=== PATIENT | female | born 1950 | race Caucasian/White ===

== ENCOUNTER 2018-03-28 16:03 | Observation (INO) | payer MEDICARE, OTHER ==
[2018-03-28] MEDS ORDERED: DUONEB 0.5-3 MG/3 ml Neb IH PRN (17:19)
[2018-03-28 18:09] LABS: A-aADO2 32; ABG HEMOGLOBIN 16.1; ABG POTASSIUM 3.4 (3.5-5.1); ARTERIAL BLD GAS O2 SATURATION 97.1 % (95-100); ARTERIAL BLOOD GAS BASE EXCESS 0.9 (-2.0-2.0); ARTERIAL BLOOD GAS FIO2 21 %; ARTERIAL BLOOD GAS PCO2 39 mmHg (35-45); ARTERIAL BLOOD GAS PO2 69 mmHg (75-100); ARTERIAL BLOOD GAS pH 7.42 (7.35-7.45); CARBOXYHEMOGLOBIN 5.7 % THgb (0.0-6.9); HCO3- 25.3 (22-28); HGB O2 SAT 90.4 g/dF (94-100); Methhemoglobin 1.2 % (1.4-1.5); paO2 pAO1 0.68
[2018-03-28 18:10] LABS: ABG SITE RIGHT RADIAL; ALLEN TEST OK? YES
[2018-03-28] MEDS: Sodium Chloride 0.9% 1000 ML 1,000 ML IV SCH (18:20)
[2018-03-28] MEDS: ENOXAPARIN SODIUM SQ SCH (18:20)
[2018-03-28] MEDS: solu-MEDROL 125 MG IV SCH (18:21)
[2018-03-28] MEDS: ROCEPHIN 1 Gm-D5w 50 ml Bag** 1 G/50 ML IVPB IV SCH (18:21)
[2018-03-28 18:27] LABS: Hematocrit 47.5 % (35-47); Mean Cell Volume 91.2 fl (78-100); Mean Corpuscular Hemoglobin 30.7 pg (26-32); Mean Corpuscular Hgb Concent. 33.7 g/dl (32-36); Mean Platelet Volume 10.8 fl (6-9.5); Platelet Count 284 K/mm3 (150-450); Red Blood Count 5.21 M/mm3 (4.1-5.4); Red Cell Distribution Width 13.6 % (11.5-14.0); White Blood Count 12.2 K/mm3 (4.0-10.5)
[2018-03-28 18:45] LABS: ALBUMIN 4.3 g/dL (3.5-5.0); ALKALINE PHOSPHATASE 95 U/L (38-126); ANION GAP 14.7 MEQ/L (5-15); BLOOD UREA NITROGEN 21 mg/dL (7-17); CHLORIDE 105 mmol/L (98-107); Calcium 9.4 mg/dL (8.4-10.2); Carbon Dioxide 24 mmol/L (22-30); Creatinine 1 0.88 mg/dL (0.52-1.04); Glucose 152 mg/dL (74-106); Potassium 3.6 mmol/L (3.5-5.1); SGOT/AST 26 U/L (14-36); SGPT/ALT 27 U/L (0-35); SODIUM 141 mmol/L (137-145); Total Protein 7.3 g/dL (6.3-8.2)
[2018-03-28 18:57] LABS: NT PRO BNP 146 pg/mL (0-900)
[2018-03-28 19:00] LABS: TROPONIN < 0.012 ng/mL (0.000-0.034)
[2018-03-28] MEDS: DUONEB 0.5-3 MG/3 ml Neb IH SCH (19:25)
[2018-03-28] MEDS ORDERED: ASTELIN NASAL INTRANASAL PRN (20:00)
[2018-03-28 20:02] LABS: INFLUENZA A NEGATIVE (NEGATIVE); INFLUENZA B NEGATIVE (NEGATIVE); RESPIRATORY SYNCTIAL VIRUS NEGATIVE (Negative)
[2018-03-28] MEDS ORDERED: Flovent 110 Mcg MDI IH PRN (20:02)
[2018-03-28] MEDS: KLONOPIN PO SCH (21:58)
[2018-03-29] MEDS: solu-MEDROL 125 MG IV SCH ×4 (00:50→22:45)
[2018-03-29] MEDS: Sodium Chloride 0.9% 1000 ML 1,000 ML IV SCH ×2 (04:21→18:06)
[2018-03-29] MEDS: DUONEB 0.5-3 MG/3 ml Neb IH SCH ×4 (06:59→19:22)
--- NOTE | 2018-03-29 08:27 | XRAY ---
Exam: PA and lateral chest films from 03/28/2018. Comparison: Two-view chest x-ray from 10/29/2017. Indication: Bronchitis Findings: Upright PA and lateral chest films are submitted for evaluation. The heart size and contour are normal. I again see moderate tortuosity of the descending thoracic aorta and some atherosclerotic vascular calcification within the aortic knob. The silverio and mediastinal structures appear unremarkable. External respiratory tubing overlies the right lung field and suprasternal notch. There is minimal stable linear scarring/fibrosis at the lateral left lung base adjacent to the cardiac apex. I see no air space infiltrates, vascular congestion, pneumothorax, or pleural fluid. No acute osseous process is seen. There is mild convexity of the mid thoracic spine toward the right representing no change. Impression: 1. No new infiltrates to suggest focal pneumonia or other acute cardiopulmonary disease is seen. 2. Chronic linear scarring/fibrosis at lateral left lung base representing no change from 10/29/2017.
[2018-03-29] MEDS: ROCEPHIN 1 Gm-D5w 50 ml Bag** 1 G/50 ML IVPB IV SCH (09:17)
[2018-03-29] MEDS: ENOXAPARIN SODIUM SQ SCH (09:17)
[2018-03-29] MEDS ORDERED: Flonase NASAL NS PRN (12:55)
[2018-03-29] MEDS: KLONOPIN PO SCH (22:45)
[2018-03-30] MEDS: Sodium Chloride 0.9% 1000 ML 1,000 ML IV SCH (03:58)
[2018-03-30] MEDS: solu-MEDROL 125 MG IV SCH (06:12)
[2018-03-30] MEDS: DUONEB 0.5-3 MG/3 ml Neb IH SCH ×2 (06:46→11:07)
[2018-03-30] MEDS: ROCEPHIN 1 Gm-D5w 50 ml Bag** 1 G/50 ML IVPB IV SCH (08:35)
[2018-03-30] MEDS: ENOXAPARIN SODIUM SQ SCH (08:35)
[2018-03-30 10:20] LABS: Hematocrit 41.7 % (35-47); Hemoglobin 13.8 gm/dl (12.0-16.0); Mean Cell Volume 93.5 fl (78-100); Mean Corpuscular Hemoglobin 30.9 pg (26-32); Mean Corpuscular Hgb Concent. 33.1 g/dl (32-36); Mean Platelet Volume 10.7 fl (6-9.5); Platelet Count 275 K/mm3 (150-450); Red Blood Count 4.46 M/mm3 (4.1-5.4); Red Cell Distribution Width 13.6 % (11.5-14.0); White Blood Count 21.9 K/mm3 (4.0-10.5)
[2018-03-30 10:30] LABS: ANION GAP 11.3 MEQ/L (5-15); BLOOD UREA NITROGEN 17 mg/dL (7-17); CHLORIDE 111 mmol/L (98-107); Calcium 8.9 mg/dL (8.4-10.2); Carbon Dioxide 21 mmol/L (22-30); Creatinine 1 0.63 mg/dL (0.52-1.04); Glucose 198 mg/dL (74-106); Potassium 4.4 mmol/L (3.5-5.1); SODIUM 139 mmol/L (137-145)
--- NOTE | 2018-03-30 11:59 | PCM.HP ---
History of Present Illness - Chief Complaint Chief Complaint: Exac. Asthma, bronchitis History of Present Illness: is a 67 year old female. - Review of Systems Constitutional: No Fever, No Chills Eyes: No Symptoms Ears, Nose, & Throat: No Symptoms Respiratory: Cough, Short Of Breath Cardiac: No Chest Pain, No Edema, No Syncope Abdominal/Gastrointestinal: No Abdominal Pain, No Nausea, No Vomiting, No Diarrhea Genitourinary Symptoms: No Dysuria Musculoskeletal: No Back Pain, No Neck Pain Skin: No Rash Neurological: No Dizziness, No Focal Weakness, No Sensory Changes Psychological: No Symptoms Endocrine: No Symptoms Hematologic/Lymphatic: No Symptoms Immunological/Allergic: No Symptoms Medications & Allergies Home Medications: Home Medication List Azelastine HCl 2 puff IH QIDPRN PRN 03/28/18 [History Confirmed 03/28/18] Fluticasone Propionate [Flonase NASAL] 2 spray IH DAILY PRN PRN 03/28/18 [ History Confirmed 03/28/18] clonazePAM [Clonazepam] 2 mg PO HS 03/28/18 [History Confirmed 03/28/18] Allergies/Adverse Reactions: Allergies Allergy/AdvReac Type Severity Reaction Status Date / Time pineapple Allergy Hives Verified 03/28/18 17:40 codeine AdvReac Verified 03/28/18 17:41 - Past Medical History Past Medical History: Yes Neurological History: No Pertinent History ENT History: No Pertinent History Cardiac History: No Pertinent History Respiratory History: Asthma Endocrine Medical History: No Pertinent History Musculoskelatal History: No Pertinent History GI Medical History: No Pertinent History History: No Pertinent History Pyscho-Social History: Anxiety Reproductive Disorders: No Pertinent History - Female History Are you now?: No - Past Surgical History Past Surgical History: Yes Neuro Surgical History: No Pertinent History Cardiac History: No Pertinent History Respiratory Surgery: No Pertinent History GI Surgical History: No Pertinent History Genitourinary Surgical Hx: No Pertinent History Musculskeletal Surgical Hx: No Pertinent History Female Surgical History: Hysterectomy - Social History Smoking Status: Current every day smoker How long have you smoked: 50 yrs Alcohol: None Drug Use: none - Physical Exam Vital Signs: Vital Signs - 24 hr Temp Pulse Resp BP Pulse Ox 03/30/18 11:10 101 H 16 94 L 03/30/18 07:09 98.3 F 112 H 20 160/95 96 03/30/18 06:46 112 H 20 96 03/30/18 04:05 97.6 F 112 H 20 119/70 97 03/29/18 23:48 98.4 F 118 H 20 131/67 97 03/29/18 22:59 102 H 20 96 03/29/18 20:00 98.5 F 105 H 20 124/60 96 03/29/18 19:25 101 H 20 95 03/29/18 16:00 98.2 F 107 H 20 119/64 95 03/29/18 14:59 85 18 93 L 03/29/18 12:00 140/74 Oxygen-Last 24 hours O2 Percentage 2 Liters = 28% O2 Percentage 2 Liters = 28% O2 Percentage 2 Liters = 28% O2 Percentage 2 Liters = 28% O2 Percentage 2 Liters = 28% General Appearance: no apparent distress, alert Neurologic Exam: alert, oriented x 3, cooperative, normal mood/affect, nml cerebellar function, nml station & gait, sensation nml, No motor deficits Eye Exam: PERRL/EOMI, eyes nml inspection Ears, Nose, Throat Exam: normal ENT inspection, TMs normal, pharynx normal, moist mucous membranes Neck Exam: normal inspection, non-tender, supple, full range of motion Respiratory Exam: normal breath sounds, lungs clear, No respiratory distress Cardiovascular Exam: regular rate/rhythm, normal heart sounds, normal peripheral pulses Gastrointestinal/Abdomen Exam: soft, normal bowel sounds, No tenderness, No mass Back Exam: normal inspection, normal range of motion, No CVA tenderness, No vertebral tenderness Extremity Exam: normal inspection, normal range of motion, pelvis stable Skin Exam: normal color, warm, dry, No rash Lymphatic Exam: No adenopathy Results - Labs Lab/Micro Results: Lab Results-Last 24 Hours 03/30/18 03/30/18 Range/Units 10:06 10:06 WBC 21.9 H (4.0-10.5) K/mm3 RBC 4.46 (4.1-5.4) M/mm3 Hgb 13.8 (12.0-16.0) gm/dl Hct 41.7 (35-47) % MCV 93.5 (78-100) fl MCH 30.9 (26-32) pg MCHC 33.1 (32-36) g/dl RDW 13.6 (11.5-14.0) % Plt Count 275 (150-450) K/mm3 MPV 10.7 H (6-9.5) fl Sodium 139 (137-145) mmol/L Potassium 4.4 (3.5-5.1) mmol/L Chloride 111 H (98-107) mmol/L Carbon Dioxide 21 L (22-30) mmol/L Anion Gap 11.3 (5-15) MEQ/L BUN 17 (7-17) mg/dL Creatinine 0.63 (0.52-1.04) mg/dL Estimated GFR > 60.0 ML/MIN Glucose 198 H (74-106) mg/dL Calcium 8.9 (8.4-10.2) mg/dL - Radiology Impressions Radiology Exams & Impressions: Radiology Procedures Category Date Time Status CHEST 2 VIEWS (PA AND LAT) Routine Exams 03/28/18 18:00 Completed Assessment/Plan (1) Bronchitis Current Visit: Yes Status: Acute Onset Date: ~03/28/18 Code(s): J40 - BRONCHITIS, NOT SPECIFIED ACUTE OR CHRONIC (2) COPD (chronic obstructive pulmonary disease) Current Visit: Yes Status: Acute Onset Date: ~03/28/18 (3) Exacerbation of asthma Current Visit: Yes Status: Acute Onset Date: ~03/28/18 Code(s): J45.901 - UNSPECIFIED ASTHMA WITH (ACUTE) EXACERBATION
--- NOTE | 2018-03-30 12:01 | PCM.DS ---
Discharge Summary Date of Admission: 03/28/18 17:02 Admitting Physician: PHOEBE CAMPBELL Primary Care Provider: PHOEBE CAMPBELL Allergies Allergies pineapple Allergy (Verified 03/28/18 17:40) Hives codeine Adverse Reaction (Verified 03/28/18 17:41) behaviors Hospital Summary - Hospital Course Hospital Course: Chief Complaint Diagnosis Exac. Asthma, bronchitis Allergies Allergy/AdvReac Type Severity Reaction Status Date / Time pineapple Allergy Hives Verified 03/28/18 17:40 codeine AdvReac Verified 03/28/18 17:41 Vital Signs (Last 24 hours) Temp Pulse Resp BP Pulse Ox 03/30/18 11:10 101 H 16 94 L 03/30/18 07:09 98.3 F 112 H 20 160/95 96 03/30/18 06:46 112 H 20 96 03/30/18 04:05 97.6 F 112 H 20 119/70 97 03/29/18 23:48 98.4 F 118 H 20 131/67 97 03/29/18 22:59 102 H 20 96 03/29/18 20:00 98.5 F 105 H 20 124/60 96 03/29/18 19:25 101 H 20 95 03/29/18 16:00 98.2 F 107 H 20 119/64 95 03/29/18 14:59 85 18 93 L 03/29/18 12:00 140/74 Home Medications Medication Instructions Recorded Confirmed Last Taken Type Azelastine HCl 2 puff IH QIDPRN PRN 03/28/18 03/28/18 03/28/18 History Fluticasone Propionate [Flonase 2 spray IH DAILY PRN PRN 03/28/18 03/28/18 Unknown History NASAL] clonazePAM [Clonazepam] 2 mg PO HS 03/28/18 03/28/18 03/27/18 History Current Medications Generic Name Dose Route Start Last Admin Trade Name Freq PRN Reason Stop Dose Admin Albuterol/Ipratropium 3 ml 03/28/18 19:00 03/30/18 11:07 Duoneb 0.5-3 Mg/3 Ml Neb IH 04/27/18 18:59 3 ml QIDRT EZRA Administration Albuterol/Ipratropium 3 ml 03/28/18 17:19 03/29/18 22:57 Duoneb 0.5-3 Mg/3 Ml Neb IH 04/27/18 17:18 3 ml PRN PRN Administration Azelastine HCl 0 ml 03/28/18 20:00 Astelin Nasal INTRANASAL 04/27/18 19:59 QID PRN PRN ALLERGIC RHINITIS Clonazepam 2 mg 03/28/18 22:00 03/29/18 22:45 Klonopin PO 04/27/18 21:59 2 mg HS EZRA Administration Enoxaparin Sodium 40 mg 03/28/18 17:30 03/30/18 08:35 Enoxaparin Sodium SQ 04/27/18 17:29 40 mg DAILY EZRA Administration Fluticasone Propionate 0 gm 03/29/18 12:55 Flonase Nasal NS 04/28/18 12:54 DAILY PRN PRN ALLERGIES Sodium Chloride 1,000 mls @ 100 mls/hr 03/28/18 17:30 03/30/18 03:58 Sodium Chloride 0.9% 1000 Ml IV 04/27/18 17:29 100 mls/hr .Q10H EZRA Administration Ceftriaxone Sodium/Dextrose 1 g in 50 mls @ 100 mls/hr 03/28/18 17:30 08:35 Rocephin 1 Gm-D5w 50 Ml Bag IV 04/27/18 17:29 100 mls/hr DAILY EZRA Administration Methylprednisolone Sodium Succinate 60 mg 03/28/18 17:30 03/30/18 06:12 Solu-Medrol 125 Mg IV 04/27/18 17:29 60 mg Q8HT EZRA Administration Intake & Output (Last 24 hours) 03/27/18 03/28/18 03/29/18 03/30/18 11:59 11:59 11:59 11:59 Intake Total 720 4197 Balance 720 4197 Weight 92 kg Laboratory Results (Last 24 hours) 03/30/18 03/30/18 10:06 10:06 WBC 21.9 H RBC 4.46 Hgb 13.8 Hct 41.7 MCV 93.5 MCH 30.9 MCHC 33.1 RDW 13.6 Plt Count 275 MPV 10.7 H Sodium 139 Potassium 4.4 Chloride 111 H Carbon Dioxide 21 L Anion Gap 11.3 BUN 17 Creatinine 0.63 Estimated GFR > 60.0 Glucose 198 H Calcium 8.9 Orders (Last 24 hours) Category Date Time Status Ambulate Patient TID Care 03/30/18 09:32 Active BMP Urgent Lab 03/30/18 10:06 Completed CBC Urgent Lab 03/30/18 10:06 Completed Fluticasone Propionate [Flonase NASAL] Med 03/29/18 12:55 Active 0 gm NS DAILY PRN PRN RT Miscellaneous Order ROUTINE RT 03/30/18 09:33 Completed Patient Care Notes (Last 24 hours) 03/30/18 11:11 Respiratory Note by Missy Montilla PLACED ON ROOM AIR . APPROX 30MIN LATER ROOM AIR RESTING 93%. ROOM AIR AMBULATION 92% Initialized on 03/30/18 11:11 - END OF NOTE - Vitals & Intake/Output Vital Signs: Vital Signs Temperature 98.3 F 03/30/18 07:09 Pulse Rate 101 H 03/30/18 11:10 Respiratory Rate 16 03/30/18 11:10 Blood Pressure 160/95 03/30/18 07:09 O2 Sat by Pulse Oximetry 94 L 03/30/18 11:10 Oxygen-Last Documented O2 Percentage 2 Liters = 28% Intake & Output: Intake & Output 03/27/18 03/28/18 03/29/18 03/30/18 11:59 11:59 11:59 11:59 Intake Total 720 4197 Balance 720 4197 Weight 92 kg - Lab Result Diagrams: 03/30/18 10:06 03/30/18 10:06 Lab Results-Last 24 Hrs: Lab Results-Last 24 Hours 03/30/18 03/30/18 Range/Units 10:06 10:06 WBC 21.9 H (4.0-10.5) K/mm3 RBC 4.46 (4.1-5.4) M/mm3 Hgb 13.8 (12.0-16.0) gm/dl Hct 41.7 (35-47) % MCV 93.5 (78-100) fl MCH 30.9 (26-32) pg MCHC 33.1 (32-36) g/dl RDW 13.6 (11.5-14.0) % Plt Count 275 (150-450) K/mm3 MPV 10.7 H (6-9.5) fl Sodium 139 (137-145) mmol/L Potassium 4.4 (3.5-5.1) mmol/L Chloride 111 H (98-107) mmol/L Carbon Dioxide 21 L (22-30) mmol/L Anion Gap 11.3 (5-15) MEQ/L BUN 17 (7-17) mg/dL Creatinine 0.63 (0.52-1.04) mg/dL Estimated GFR > 60.0 ML/MIN Glucose 198 H (74-106) mg/dL Calcium 8.9 (8.4-10.2) mg/dL - Radiology Exams Ordered Rad Exams-Entire Visit: Radiology Procedures Category Date Time Status CHEST 2 VIEWS (PA AND LAT) Routine Exams 03/28/18 18:00 Completed - Procedures and Test Procedures and Tests throughout Hospitalization: Therapy Orders & Screens 03/28/18 17:26 Respiratory Nebulizer UD Comment: judie QID and PRN Diagnosis: Exac. Asthma, bronchitis 03/28/18 17:30 EKG ROUTINE Comment: Diagnosis: Exac. Asthma, bronchitis 03/28/18 18:06 Smoking Cessation Education ONCE Comment: Diagnosis: Exac. Asthma, bronchitis Smoking Status: Current every day smoker How long have you smoked: 50 yrs Have you smoked in the past 12 months: Yes Approximately how many cigarettes per day: 1 and 1/2 ppd Do you dip or chew tobacco: No 03/29/18 07:01 Oxygen NASAL CANNULA 2 lpm Comment: Diagnosis: Exac. Asthma, bronchitis 03/30/18 09:33 RT Miscellaneous Order ROUTINE Comment: Physician Instructions: wean oxygen Reason For Exam: copd, wean oxygen Diagnosis: Exac. Asthma, bronchitis Discharge Exam General Appearance: no apparent distress, alert Neurologic Exam: alert, oriented x 3, cooperative, normal mood/affect, nml cerebellar function, sensation nml, No motor deficits Skin Exam: normal color, warm, dry Eye Exam: PERRL, EOMI, eyes nml inspection Ears, Nose, Throat Exam: normal ENT inspection, pharynx normal, moist mucous membranes Neck Exam: normal inspection, non-tender, supple, full range of motion Respiratory Exam: normal breath sounds, lungs clear, No respiratory distress Cardiovascular Exam: regular rate/rhythm, normal heart sounds Gastrointestinal/Abdomen Exam: soft, No tenderness, No mass Extremity Exam: normal inspection, normal range of motion Back Exam: normal inspection, normal range of motion, No CVA tenderness, No vertebral tenderness Pelvic Exam: deferred Rectal Exam: deferred Final Diagnosis/Problem List - Final Discharge Diagnosis/Problem (1) Bronchitis Current Visit: Yes Status: Acute Onset Date: ~03/28/18 (2) COPD (chronic obstructive pulmonary disease) Current Visit: Yes Status: Acute Onset Date: ~03/28/18 (3) Exacerbation of asthma Current Visit: Yes Status: Acute Onset Date: ~03/28/18 - Discharge Discharge Date: 03/30/18 Disposition: Home, Self-Care Condition: Stable Prescriptions: New Cephalexin Mh 500 mg [Keflex 500 mg] 500 mg PO QID #30 capsule Continue clonazePAM [Clonazepam] 2 mg PO HS Fluticasone Propionate [Flonase NASAL] 2 spray IH DAILY PRN PRN PRN Reason: Allergies Azelastine HCl 2 puff IH QIDPRN PRN PRN Reason: sob Instructions: Quitting Smoking, Exacerbation of COPD (DC) Follow up with: CIRO MORALES MD [ACTIVE STAFF] - 04/07/18 10:15 am Forms: Discharge Instructions
[2018-03-30 12:51] VITALS: BP 132/69; PULSE 111; O2SAT 95
== END 2018-03-30 13:50 | disposition home or self-care (01) ==
LOC: MED SURG 17:02
PROVIDERS: ADMIT General Practice; ATTEND General Practice
DX: J40 Bronchitis, not specified as acute or chronic (principal); J44.9 Chronic obstructive pulmonary disease, unspecified; J45.901 Unspecified asthma with (acute) exacerbation; F41.9 Anxiety disorder, unspecified; Z72.0 Tobacco use
CPT/HCPCS: 36415; 36600; 71046; 80048; 80053; 82375; 82803; 83880; 84484; 85027; 87631; 93005; 94150; 94640; 94760; G0378; J0696; J1650; J2930; A9270-GY

== ENCOUNTER 2019-07-02 17:10 | Observation (INO) | payer MEDICARE, OTHER ==
[2019-07-02] MEDS ORDERED: Sodium Chloride 0.9% 1000 ML 1,000 ML IV STA (17:35)
--- NOTE | 2019-07-02 17:41 | ERPHSYRPT ---
- History of Present Illness Historian: patient Exam Limitations: no limitations Physician History: Diarrhea that began yesterday with mild left lower abdominal aching and pain. Patient has had four episodes of large watery diarrhea since 07/01/2019, with blood in her stool today. Timing/Duration: yesterday Activities at Onset: none Quality: aching Abdominal Pain Onset Location: LLQ Pain Radiation: no radiation Severity of Pain-Max: moderate Severity of Pain-Current: mild Modifying Factors: Improves With: defecating Associated Symptoms: diarrhea, No denies symptoms, No back, No chest pain, No diaphoresis, No fatigue, No headache, No heartburn, No loss of appetite, No nausea, No neck pain, No rash, No shortness of breath, No syncope, No vomiting, No weakness Previous symptoms: no prior history Allergies/Adverse Reactions: pineapple Allergy (Verified 03/28/18 17:40) Hives codeine Adverse Reaction (Verified 03/28/18 17:41) behaviors Home Medications: Azelastine HCl 2 puff IH QIDPRN PRN 03/28/18 [History] Fluticasone Propionate [Flonase NASAL] 2 spray IH DAILY PRN PRN 03/28/18 [ History] clonazePAM [Clonazepam] 2 mg PO HS 03/28/18 [History] - Review of Systems Constitutional: No Fever, No Chills Eyes: No Symptoms Ears, Nose, & Throat: No Symptoms, No Mouth Pain, No Throat Pain Respiratory: No Cough, No Dyspnea Cardiac: No Chest Pain, No Edema, No Syncope Abdominal/Gastrointestinal: Abdominal Pain, Hematochezia, No Nausea, No Vomiting , No Diarrhea Genitourinary Symptoms: No Dysuria Musculoskeletal: No Back Pain, No Neck Pain Skin: No Rash Neurological: No Dizziness, No Focal Weakness, No Parasthesia, No Sensory Changes, No Tremors Psychological: No Symptoms Endocrine: No Symptoms, No Polyuria, No Excessive Sweating Hematologic/Lymphatic: No Anemia, No Easy Bruising All Other Systems: Reviewed and Negative - Past Medical History Pertinent Past Medical History: Yes Neurological History: No Pertinent History ENT History: No Pertinent History Cardiac History: No Pertinent History Respiratory History: Asthma Endocrine Medical History: No Pertinent History Musculoskeletal History: No Pertinent History GI Medical History: No Pertinent History History: No Pertinent History Psycho-Social History: Anxiety Female Reproductive Disorders: No Pertinent History - Past Surgical History Past Surgical History: Yes Neuro Surgical History: No Pertinent History Cardiac: No Pertinent History Respiratory: No Pertinent History Gastrointestinal: No Pertinent History Genitourinary: No Pertinent History Musculoskeletal: No Pertinent History Female Surgical History: Hysterectomy - Social History Smoking Status: Current every day smoker How long have you smoked: 50 yrs Drug Use: none Significant Family History: other (Sister of colon cancer at age 46) - Nursing Vital Signs Nursing Vital Signs: Initial Vital Signs Temperature 98.4 F 07/02/19 17:23 Pulse Rate 100 H 07/02/19 17:23 Respiratory Rate 20 07/02/19 17:23 Blood Pressure 140/94 07/02/19 17:23 O2 Sat by Pulse Oximetry 95 07/02/19 17:23 Pain Scale Pain Intensity 0 - Physical Exam General Appearance: no apparent distress, alert Eye Exam: PERRL/EOMI, eyes nml inspection, No scleral icterus Ears, Nose, Throat Exam: normal ENT inspection, pharynx normal, moist mucous membranes Neck Exam: normal inspection, non-tender, supple, full range of motion Respiratory Exam: normal breath sounds, lungs clear, airway intact, No respiratory distress, No diminished breath sounds, No accessory muscle use Cardiovascular Exam: regular rate/rhythm, normal heart sounds, capillary refill <2 sec Gastrointestinal/Abdomen Exam: soft, tenderness, No distention, No mass, No guarding, No rebound Pelvic Exam: not done Rectal Exam: normal rectal tone, other (positive hemoccult; examination chaperoned by Jordan Alvarez RN), No mass, No hemorrhoids, No black stool, No blood Back Exam: normal inspection, normal range of motion, No CVA tenderness, No vertebral tenderness Extremity Exam: normal inspection, normal range of motion, pelvis stable Neurologic Exam: alert, oriented x 3, cooperative, normal mood/affect, nml cerebellar function, sensation nml, No motor deficits Skin Exam: normal color, warm, dry SpO2 Interpretation: normal O2 Delivery: Room Air - Course Nursing assessment & vital signs reviewed: Yes - CT Exams Abdomen/Pelvis CT Interpretation: Discussed w/radiologist (abnormal transverse colon with circumferential wall thickening with stranding favoring colitis. Mild sigmoid diverticulosis. Diffuse fatty liver. Appendicolith without appendicitis), No appendicitis, Other (transverse wall circumferential thickening; appendicolith without appendicitis; sigmoid diverticulosis) Ordered Tests: Active Orders 24 hr Category Date Time Status IV Insertion STAT Care 07/02/19 17:35 Active ABDOMEN AND PELVIS W/0 CONTRAS [CT] Stat Exams 07/02/19 17:35 Completed AMYLASE Stat Lab 07/02/19 17:45 Completed CBC W DIFF Stat Lab 07/02/19 17:45 Completed CMP Stat Lab 07/02/19 17:45 Completed LIPASE Stat Lab 07/02/19 17:45 Completed Lactic Acid Stat Lab 07/02/19 17:35 Completed Medication Summary Discontinued Medications Generic Name Dose Route Start Last Admin Trade Name Trinity PRN Reason Stop Dose Admin Sodium Chloride 1,000 mls @ 999 mls/hr 07/02/19 17:35 07/02/19 18:57 Sodium Chloride 0.9% 1000 Ml IV 07/02/19 18:35 Infused .Q1H1M STA Infusion Sodium Chloride Confirm 07/02/19 17:44 Sodium Chloride 0.9% 1000 Ml Administered 07/02/19 17:45 Dose 1,000 mls @ ud .ROUTE .[facility] Lab/Rad Data: Laboratory Result Diagrams 07/02/19 17:45 07/02/19 17:45 Laboratory Results 07/02/19 07/02/19 07/02/19 Range/Units 17:45 17:45 17:35 WBC 15.3 H (4.0-10.5) K/mm3 RBC 5.09 (4.1-5.4) M/mm3 Hgb 15.8 (12.0-16.0) gm/dl Hct 47.1 H (35-47) % MCV 92.5 (78-100) fl MCH 31.0 (26-32) pg MCHC 33.5 (32-36) g/dl RDW 14.3 H (11.5-14.0) % Plt Count 294 (150-450) K/mm3 MPV 10.3 H (6-9.5) fl Gran % 68.7 H (36.0-66.0) % Eos # (Auto) 0.13 (0-0.5) Absolute Lymphs (auto) 3.30 (1.0-4.6) Absolute Monos (auto) 1.36 H (0.0-1.3) Lymphocytes % 21.5 L (24.0-44.0) % Monocytes % 8.9 (0.0-12.0) % Eosinophils % 0.8 (0.00-5.0) % Basophils % 0.1 (0.0-0.4) % Absolute Granulocytes 10.53 H (1.4-6.9) Basophils # 0.02 (0-0.4) Sodium 140 (137-145) mmol/L Potassium 4.3 (3.5-5.1) mmol/L Chloride 110 H (98-107) mmol/L Carbon Dioxide 25 (22-30) mmol/L Anion Gap 9.4 (5-15) MEQ/L BUN 18 H (7-17) mg/dL Creatinine 0.71 (0.52-1.04) mg/dL Estimated GFR > 60.0 ML/MIN Glucose 94 (74-106) mg/dL Lactic Acid 1.0 (0.4-2.0) Calcium 9.1 (8.4-10.2) mg/dL Total Bilirubin 0.30 (0.2-1.3) mg/dL AST 24 (14-36) U/L ALT 24 (0-35) U/L Alkaline Phosphatase 93 (38-126) U/L Serum Total Protein 7.1 (6.3-8.2) g/dL Albumin 4.2 (3.5-5.0) g/dL Amylase 78 (30-110) U/L Lipase 150 (23-300) U/L - Progress Progress: improved Progress Note: 07/02/19 21:[address] Ford, Hospitalist. Dr Ford recommended surgery consult, IV Ciprofloxacin and Flagyl, and liquid diet Discussed with .: Roger Will see patient in: hospital (observation) Counseled pt/family regarding: lab results, diagnosis, need for follow-up, rad results - Departure Departure Disposition: Observation Clinical Impression: Left lower quadrant abdominal pain, Colitis, Hematochezia, Sigmoid diverticulosis, Elevated blood pressure reading without diagnosis of hypertension Condition: Fair Critical Care Time: No Referrals: PHOEBE CAMPBELL [Primary Care Provider] -
[2019-07-02] MEDS ORDERED: Sodium Chloride 0.9% 1000 ML 1,000 ML ONE (17:44)
[2019-07-02 17:54] LABS: BASOPHIL % 0.1 % (0.0-0.4); Basophil (Absolute #) 0.02 (0-0.4); Eosinophil % 0.8 % (0.00-5.0); Eosinophil (Absolute #) 0.13 (0-0.5); Granulocyte Absolute (ANC) 10.53 (1.4-6.9); Granulocytes % 68.7 % (36.0-66.0); Hematocrit 47.1 % (35-47); Hemoglobin 15.8 gm/dl (12.0-16.0); Lymphocytes % 21.5 % (24.0-44.0); Mean Cell Volume 92.5 fl (78-100); Mean Corpuscular Hgb Concent. 33.5 g/dl (32-36); Mean Platelet Volume 10.3 fl (6-9.5); Monocyte (Absolute #) 1.36 (0.0-1.3); Monocytes % 8.9 % (0.0-12.0); Platelet Count 294 K/mm3 (150-450); Red Blood Count 5.09 M/mm3 (4.1-5.4); Red Cell Distribution Width 14.3 % (11.5-14.0); White Blood Count 15.3 K/mm3 (4.0-10.5)
[2019-07-02 18:03] LABS: ALBUMIN 4.2 g/dL (3.5-5.0); ALKALINE PHOSPHATASE 93 U/L (38-126); AMYLASE 78 U/L (30-110); ANION GAP 9.4 MEQ/L (5-15); BLOOD UREA NITROGEN 18 mg/dL (7-17); CHLORIDE 110 mmol/L (98-107); Calcium 9.1 mg/dL (8.4-10.2); Carbon Dioxide 25 mmol/L (22-30); Creatinine 1 0.71 mg/dL (0.52-1.04); Glucose 94 mg/dL (74-106); LIPASE 150 U/L (23-300); Potassium 4.3 mmol/L (3.5-5.1); SGOT/AST 24 U/L (14-36); SGPT/ALT 24 U/L (0-35); SODIUM 140 mmol/L (137-145); Total Protein 7.1 g/dL (6.3-8.2)
--- NOTE | 2019-07-02 20:30 | XRAY ---
Indication: Blood clots in stool. Multiple contiguous axial images obtained through the abdomen and pelvis without contrast as ordered. Comparison: None. Lung bases are clear. Heart is not enlarged. Noncontrasted stomach and bowel loops appear nonobstructed. Tiny appendicolith without appendicitis. Transverse colon demonstrates circumferential wall thickening with stranding favoring colitis. No free fluid/air. Mild sigmoid diverticulosis. Diffuse fatty liver. Gallbladder contracted without gallstones. Remaining pancreas, spleen, adrenal glands, kidneys, ureters, and bladder appear unremarkable for noncontrast exam. Mild aortoiliac calcifications without AAA. Osseous structures intact. Impression: 1. Abnormal transverse colon as detailed favoring colitis. No complications. 2. Incidental sigmoid diverticulosis, fatty liver, and appendicolith. Comment: Preliminary interpretation was made by [facility]. No critical discrepancy. CTDI 22.26
[2019-07-02] MEDS: Sodium Chloride 0.9% 1000 ML 1,000 ML IV SCH (22:37)
[2019-07-02] MEDS: FLAGYL 500 MG IVPB 500 MG/100 ML BAG IV SCH (22:37)
[2019-07-02] MEDS: Cipro 500 MG PO SCH (22:37)
[2019-07-03 04:58] LABS: BASOPHIL % 0.1 % (0.0-0.4); Basophil (Absolute #) 0.02 (0-0.4); Eosinophil % 1.3 % (0.00-5.0); Granulocyte Absolute (ANC) 9.61 (1.4-6.9); Granulocytes % 62.1 % (36.0-66.0); Hematocrit 45.6 % (35-47); Lymphocyte (Absolute #) 4.33 (1.0-4.6); Mean Cell Volume 94.4 fl (78-100); Mean Corpuscular Hemoglobin 31.1 pg (26-32); Mean Corpuscular Hgb Concent. 32.9 g/dl (32-36); Mean Platelet Volume 10.4 fl (6-9.5); Monocyte (Absolute #) 1.32 (0.0-1.3); Monocytes % 8.5 % (0.0-12.0); Platelet Count 283 K/mm3 (150-450); Red Blood Count 4.83 M/mm3 (4.1-5.4); Red Cell Distribution Width 14.4 % (11.5-14.0); White Blood Count 15.5 K/mm3 (4.0-10.5)
[2019-07-03] MEDS: FLAGYL 500 MG IVPB 500 MG/100 ML BAG IV SCH ×4 (05:14→23:16)
[2019-07-03 05:40] LABS: ANION GAP 8.1 MEQ/L (5-15); BLOOD UREA NITROGEN 13 mg/dL (7-17); CHLORIDE 108 mmol/L (98-107); Calcium 8.8 mg/dL (8.4-10.2); Carbon Dioxide 30 mmol/L (22-30); Creatinine 1 0.71 mg/dL (0.52-1.04); Glucose 99 mg/dL (74-106); Potassium 4.9 mmol/L (3.5-5.1); SODIUM 142 mmol/L (137-145)
[2019-07-03] MEDS: Cipro 500 MG PO SCH (08:56)
[2019-07-03] MEDS ORDERED: Flonase NASAL NS PRN (09:18)
[2019-07-03] MEDS ORDERED: PROVENTIL COMMON CANISTER IH PRN (09:18)
[2019-07-03] MEDS: Sodium Chloride 0.9% 1000 ML 1,000 ML IV SCH ×2 (10:17→21:45)
[2019-07-03] MEDS ORDERED: Golytely Solution 4000 ML PO ONE (11:00)
--- NOTE | 2019-07-03 12:14 | PCM.HP ---
History of Present Illness - Chief Complaint Chief Complaint: c/o blood in stool and left lower quadrant abdominal pain for 1 -2 days History of Present Illness: is a 68 year old female.started having Diarrhea that began yesterday with mild left lower abdominal aching and pain. Patient has had four episodes of large watery diarrhea since 07/01/2019, with blood in her stool today. - Review of Systems Constitutional: No Fever, No Chills Eyes: No Symptoms Ears, Nose, & Throat: No Symptoms Respiratory: No Cough, No Short Of Breath Cardiac: No Chest Pain, No Edema, No Syncope Abdominal/Gastrointestinal: Abdominal Pain, Hematochezia, No Nausea, No Vomiting , No Diarrhea Genitourinary Symptoms: No Dysuria Musculoskeletal: No Back Pain, No Neck Pain Skin: No Rash Neurological: No Dizziness, No Focal Weakness, No Sensory Changes Psychological: No Symptoms Endocrine: No Symptoms Hematologic/Lymphatic: No Symptoms Immunological/Allergic: No Symptoms Medications & Allergies Home Medications: Home Medication List Fluticasone Propionate [Flonase NASAL] 2 spray IH DAILY PRN PRN 03/28/18 [ History Confirmed 07/02/19] clonazePAM [Clonazepam] 2 mg PO HS 03/28/18 [History Confirmed 07/02/19] Albuterol Common Canister [Proventil Common Canister] 1 mcg IH DAILY PRN PRN 07/02/19 [History Confirmed 07/02/19] Allergies/Adverse Reactions: Allergies Allergy/AdvReac Type Severity Reaction Status Date / Time pineapple Allergy Hives Verified 03/28/18 17:40 codeine AdvReac Verified 03/28/18 17:41 - Past Medical History Past Medical History: Yes Neurological History: No Pertinent History ENT History: No Pertinent History Cardiac History: No Pertinent History Respiratory History: Asthma Endocrine Medical History: No Pertinent History Musculoskelatal History: No Pertinent History GI Medical History: No Pertinent History History: No Pertinent History Pyscho-Social History: Anxiety Reproductive Disorders: No Pertinent History - Female History Are you now?: No - Past Surgical History Past Surgical History: Yes Neuro Surgical History: No Pertinent History Cardiac History: No Pertinent History Respiratory Surgery: No Pertinent History GI Surgical History: No Pertinent History Genitourinary Surgical Hx: No Pertinent History Musculskeletal Surgical Hx: No Pertinent History Female Surgical History: Hysterectomy - Social History Smoking Status: Current every day smoker How long have you smoked: 50 yrs Exposure to second hand smoke: No Alcohol: None Drug Use: none Significant Family History: other (Sister of colon cancer at age 46) - Physical Exam Vital Signs: Vital Signs - 24 hr Temp Pulse Resp BP Pulse Ox 07/03/19 07:34 98.6 F 94 H 18 126/80 92 L 07/03/19 04:00 98.5 F 86 20 131/76 90 L 07/02/19 23:16 95 H 20 98 07/02/19 23:11 98.6 F 83 18 160/89 93 L 07/02/19 23:06 98.6 F 83 18 160/89 93 L 07/02/19 21:03 86 18 121/77 96 07/02/19 20:10 86 18 126/84 96 07/02/19 18:56 84 16 135/80 96 07/02/19 17:23 98.4 F 100 H 20 140/94 95 General Appearance: no apparent distress, alert Neurologic Exam: alert, oriented x 3, cooperative, normal mood/affect, nml cerebellar function, nml station & gait, sensation nml, No motor deficits Eye Exam: PERRL/EOMI, eyes nml inspection Ears, Nose, Throat Exam: normal ENT inspection, TMs normal, pharynx normal, moist mucous membranes Neck Exam: normal inspection, non-tender, supple, full range of motion Respiratory Exam: normal breath sounds, lungs clear, No respiratory distress Cardiovascular Exam: regular rate/rhythm, normal heart sounds, normal peripheral pulses Gastrointestinal/Abdomen Exam: soft, normal bowel sounds, No tenderness, No mass Back Exam: normal inspection, normal range of motion, No CVA tenderness, No vertebral tenderness Extremity Exam: normal inspection, normal range of motion, pelvis stable Skin Exam: normal color, warm, dry, No rash Lymphatic Exam: No adenopathy Results - Labs Lab/Micro Results: Lab Results-Last 24 Hours 07/02/19 07/02/19 07/02/19 Range/Units 17:35 17:45 17:45 WBC 15.3 H (4.0-10.5) K/mm3 RBC 5.09 (4.1-5.4) M/mm3 Hgb 15.8 (12.0-16.0) gm/dl Hct 47.1 H (35-47) % MCV 92.5 (78-100) fl MCH 31.0 (26-32) pg MCHC 33.5 (32-36) g/dl RDW 14.3 H (11.5-14.0) % Plt Count 294 (150-450) K/mm3 MPV 10.3 H (6-9.5) fl Gran % 68.7 H (36.0-66.0) % Eos # (Auto) 0.13 (0-0.5) Absolute Lymphs (auto) 3.30 (1.0-4.6) Absolute Monos (auto) 1.36 H (0.0-1.3) Lymphocytes % 21.5 L (24.0-44.0) % Monocytes % 8.9 (0.0-12.0) % Eosinophils % 0.8 (0.00-5.0) % Basophils % 0.1 (0.0-0.4) % Absolute Granulocytes 10.53 H (1.4-6.9) Basophils # 0.02 (0-0.4) Sodium 140 (137-145) mmol/L Potassium 4.3 (3.5-5.1) mmol/L Chloride 110 H (98-107) mmol/L Carbon Dioxide 25 (22-30) mmol/L Anion Gap 9.4 (5-15) MEQ/L BUN 18 H (7-17) mg/dL Creatinine 0.71 (0.52-1.04) mg/dL Estimated GFR > 60.0 ML/MIN Glucose 94 (74-106) mg/dL Lactic Acid 1.0 (0.4-2.0) Calcium 9.1 (8.4-10.2) mg/dL Total Bilirubin 0.30 (0.2-1.3) mg/dL AST 24 (14-36) U/L ALT 24 (0-35) U/L Alkaline Phosphatase 93 (38-126) U/L Serum Total Protein 7.1 (6.3-8.2) g/dL Albumin 4.2 (3.5-5.0) g/dL Amylase 78 (30-110) U/L Lipase 150 (23-300) U/L 07/03/19 07/03/19 Range/Units 04:30 04:30 WBC 15.5 H (4.0-10.5) K/mm3 RBC 4.83 (4.1-5.4) M/mm3 Hgb 15.0 (12.0-16.0) gm/dl Hct 45.6 (35-47) % MCV 94.4 (78-100) fl MCH 31.1 (26-32) pg MCHC 32.9 (32-36) g/dl RDW 14.4 H (11.5-14.0) % Plt Count 283 (150-450) K/mm3 MPV 10.4 H (6-9.5) fl Gran % 62.1 (36.0-66.0) % Eos # (Auto) 0.20 (0-0.5) Absolute Lymphs (auto) 4.33 (1.0-4.6) Absolute Monos (auto) 1.32 H (0.0-1.3) Lymphocytes % 28.0 (24.0-44.0) % Monocytes % 8.5 (0.0-12.0) % Eosinophils % 1.3 (0.00-5.0) % Basophils % 0.1 (0.0-0.4) % Absolute Granulocytes 9.61 H (1.4-6.9) Basophils # 0.02 (0-0.4) Sodium 142 (137-145) mmol/L Potassium 4.9 (3.5-5.1) mmol/L Chloride 108 H (98-107) mmol/L Carbon Dioxide 30 (22-30) mmol/L Anion Gap 8.1 (5-15) MEQ/L BUN 13 (7-17) mg/dL Creatinine 0.71 (0.52-1.04) mg/dL Estimated GFR > 60.0 ML/MIN Glucose 99 (74-106) mg/dL Lactic Acid (0.4-2.0) Calcium 8.8 (8.4-10.2) mg/dL Total Bilirubin (0.2-1.3) mg/dL AST (14-36) U/L ALT (0-35) U/L Alkaline Phosphatase (38-126) U/L Serum Total Protein (6.3-8.2) g/dL Albumin (3.5-5.0) g/dL Amylase (30-110) U/L Lipase (23-300) U/L - Radiology Impressions Radiology Exams & Impressions: Radiology Procedures Category Date Time Status ABDOMEN AND PELVIS W/0 CONTRAS [CT] Stat Exams 07/02/19 17:35 Completed - Other Procedures and Tests Respiratory Therapy 07/02/19 23:16 Respiratory Therapy Assessment DAILY Assessment/Plan (1) Colitis Current Visit: Yes Status: Acute Assessment & Plan: Last Vital Signs Temp 98.6 F 07/03/19 07:34 Pulse 94 H 07/03/19 07:34 Resp 18 07/03/19 07:34 BP 126/80 07/03/19 07:34 Pulse Ox 92 L 07/03/19 07:34 Allergies pineapple Allergy (Verified 03/28/18 17:40) Hives codeine Adverse Reaction (Verified 03/28/18 17:41) behaviors Active Medications Albuterol Sulfate (Proventil Common Canister) 2 puff IH DAILY PRN PRN PRN Reason: asthma Stop: 08/02/19 09:17 Ciprofloxacin (Cipro 500 Mg) 500 mg PO BID EZRA Stop: 08/01/19 22:20 Last Admin: 07/03/19 08:56 Dose: 500 mg Clonazepam (Klonopin) 2 mg PO HS EZRA Stop: 08/02/19 21:59 Fluticasone Propionate (Flonase Nasal) 0 gm NS DAILY PRN PRN PRN Reason: ALLERGIES Stop: 08/02/19 09:17 Metronidazole (Flagyl 500 Mg Ivpb) 500 mg in 100 mls @ 200 mls/hr IV Q6HT EZRA Stop: 08/02/19 00:00 Last Admin: 07/03/19 11:30 Dose: 200 mls/hr Sodium Chloride (Sodium Chloride 0.9% 1000 Ml) 1,000 mls @ 100 mls/hr IV .Q10H EZRA Stop: 08/01/19 22:20 Last Admin: 07/03/19 10:17 Dose: 100 mls/hr Intake & Output 07/03/19 07/04/19 11:59 11:59 Intake Total 2682 Output Total 1600 Balance 1082 Weight 92 kg Orders 07/02/19 23:16 Pulse Oximetry .spot check Respiratory Therapy Assessment DAILY 07/02/19 23:28 Terrazzo Installer/Discharge Plan 07/03/19 09:18 Albuterol Common Canister [Proventil Common Canister] 2 puff IH DAILY PRN PRN Fluticasone Propionate [Flonase NASAL] 0 gm NS DAILY PRN PRN 07/03/19 22:00 Clonazepam [Klonopin] 2 mg PO HS Lab Tests 07/02/19 07/02/19 07/02/19 17:35 17:45 17:45 WBC 15.3 H RBC 5.09 Hgb 15.8 Hct 47.1 H MCV 92.5 MCH 31.0 MCHC 33.5 RDW 14.3 H Plt Count 294 MPV 10.3 H Gran % 68.7 H Eos # (Auto) 0.13 Absolute Lymphs (auto) 3.30 Absolute Monos (auto) 1.36 H Lymphocytes % 21.5 L Monocytes % 8.9 Eosinophils % 0.8 Basophils % 0.1 Absolute Granulocytes 10.53 H Basophils # 0.02 Sodium 140 Potassium 4.3 Chloride 110 H Carbon Dioxide 25 Anion Gap 9.4 BUN 18 H Creatinine 0.71 Estimated GFR > 60.0 Glucose 94 Lactic Acid 1.0 Calcium 9.1 Total Bilirubin 0.30 AST 24 ALT 24 Alkaline Phosphatase 93 Serum Total Protein 7.1 Albumin 4.2 Amylase 78 Lipase 150 07/03/19 07/03/19 04:30 04:30 WBC 15.5 H RBC 4.83 Hgb 15.0 Hct 45.6 MCV 94.4 MCH 31.1 MCHC 32.9 RDW 14.4 H Plt Count 283 MPV 10.4 H Gran % 62.1 Eos # (Auto) 0.20 Absolute Lymphs (auto) 4.33 Absolute Monos (auto) 1.32 H Lymphocytes % 28.0 Monocytes % 8.5 Eosinophils % 1.3 Basophils % 0.1 Absolute Granulocytes 9.61 H Basophils # 0.02 Sodium 142 Potassium 4.9 Chloride 108 H Carbon Dioxide 30 Anion Gap 8.1 BUN 13 Creatinine 0.71 Estimated GFR > 60.0 Glucose 99 Lactic Acid Calcium 8.8 Total Bilirubin AST ALT Alkaline Phosphatase Serum Total Protein Albumin Amylase Lipase Code(s): K52.9 - NONINFECTIVE GASTROENTERITIS AND COLITIS, UNSPECIFIED (2) Hematochezia Current Visit: Yes Status: Acute Code(s): K92.1 - MELENA (3) Left lower quadrant abdominal pain Current Visit: Yes Status: Acute Code(s): R10.32 - LEFT LOWER QUADRANT PAIN
[2019-07-03] MEDS ORDERED: KLONOPIN PO SCH (22:00)
[2019-07-04] MEDS: FLAGYL 500 MG IVPB 500 MG/100 ML BAG IV SCH ×2 (05:37→13:46)
--- NOTE | 2019-07-04 07:52 | CONS ---
CONSULT DATE: 07/03/2019 REASON FOR CONSULT: Colitis. HISTORY: The patient is seen and examined at the bedside. She had quite a bit of diarrhea. Her abdomen is diffusely tender. She appears slightly ill. Her CT scan is positive with thickened colon to the transverse colon. Her white count is elevated at 15,000. IMPRESSION: Colitis possibly Clostridium difficile possibly ischemic colitis. PLAN: We will do colonoscopy tomorrow.
[2019-07-04] MEDS ORDERED: Lactated Ringers 1,000 ML IV SCH (10:30)
[2019-07-04] MEDS ORDERED: Ketamine HCl 50 MG/ML ONE (10:41)
[2019-07-04] MEDS ORDERED: DIPRIVAN 200 MG/20 ML IV ONE ×2 (10:41→11:32)
[2019-07-04] MEDS ORDERED: ROBINUL ONE (11:33)
[2019-07-04] MEDS ORDERED: AZULFIDINE 500 MG PO SCH (12:40)
--- NOTE | 2019-07-04 12:46 | PCM.DS ---
Discharge Summary Date of Admission: 07/02/19 22:18 Admitting Physician: CIRO MORALES Consults: Consults on Case 07/02/19 22:21 Consult Surgery ROUTINE Primary Care Provider: CIRO MORALES Allergies Allergies pineapple Allergy (Verified 03/28/18 17:40) Hives codeine Adverse Reaction (Verified 03/28/18 17:41) behaviors Hospital Summary - Hospital Course Hospital Course: Chief Complaint Diagnosis c/o blood in stool and left lower quadrant abdominal pain for 1-2 days Allergies Allergy/AdvReac Type Severity Reaction Status Date / Time pineapple Allergy Hives Verified 03/28/18 17:40 codeine AdvReac Verified 03/28/18 17:41 Vital Signs (Last 24 hours) Temp Pulse Resp BP Pulse Ox 07/04/19 12:00 98.2 F 83 18 137/73 95 07/04/19 10:38 98.5 F 91 H 17 137/75 91 L 07/04/19 10:15 98.5 F 91 H 17 137/75 91 L 07/04/19 08:36 98.5 F 91 H 17 137/75 91 L 07/04/19 08:00 98.5 F 91 H 17 137/75 07/04/19 04:17 99.3 F 97 H 24 143/78 93 L 07/03/19 23:34 98.0 F 82 20 162/96 96 07/03/19 20:20 82 20 96 07/03/19 19:51 98.2 F 77 20 134/92 93 L 07/03/19 16:00 98.6 F 86 18 160/89 93 L Home Medications Medication Instructions Recorded Confirmed Last Taken Type Albuterol Common Canister 1 mcg IH DAILY PRN PRN 07/02/19 07/02/19 Unknown History [Proventil Common Canister] Metronidazole 500 mg [Flagyl 500 mg PO TID #15 tablet 07/04/19 Unknown Rx 500 MG] Current Medications Generic Name Dose Route Start Last Admin Trade Name Freq PRN Reason Stop Dose Admin Albuterol Sulfate 2 puff 07/03/19 09:18 Proventil Common Canister IH 08/02/19 09:17 DAILY PRN PRN asthma Clonazepam 2 mg 07/03/19 22:00 07/04/19 02:50 Klonopin PO 08/02/19 21:59 Not Given HS EZRA Fluticasone Propionate 0 gm 07/03/19 09:18 Flonase Nasal NS 08/02/19 09:17 DAILY PRN PRN ALLERGIES Metronidazole 500 mg in 100 mls @ 200 mls/hr 07/03/19 00:00 07/04/19 05:37 Flagyl 500 Mg Ivpb IV 08/02/19 00:00 200 mls/hr Q6HT EZRA Administration Sodium Chloride 1,000 mls @ 100 mls/hr 07/02/19 22:21 07/03/19 21:45 Sodium Chloride 0.9% 1000 Ml IV 08/01/19 22:20 100 mls/hr .Q10H EZRA Administration Lactated Ringer's 1,000 mls @ 50 mls/hr 07/04/19 10:30 07/04/19 10:31 Lactated Ringers IV 07/05/19 06:29 50 mls/hr .Q20H EZRA Administration Sulfasalazine 500 mg 07/04/19 12:40 Azulfidine 500 Mg PO 07/04/19 12:41 BID STA Discontinued Medications Generic Name Dose Route Start Last Admin Trade Name Freq PRN Reason Stop Dose Admin Ciprofloxacin 500 mg 07/02/19 22:21 07/03/19 08:56 Cipro 500 Mg PO 08/01/19 22:20 500 mg BID EZRA Administration Glycopyrrolate Confirm 07/04/19 11:33 Robinul Administered 07/04/19 11:34 Dose 0.2 mg .ROUTE .STK-MED ONE Sodium Chloride 1,000 mls @ 999 mls/hr 07/02/19 17:35 07/02/19 18:57 Sodium Chloride 0.9% 1000 Ml IV 07/02/19 18:35 Infused .Q1H1M STA Infusion Sodium Chloride Confirm 07/02/19 17:44 Sodium Chloride 0.9% 1000 Ml Administered 07/02/19 17:45 Dose 1,000 mls @ ud .ROUTE .STK-MED ONE Ketamine HCl Confirm 07/04/19 10:41 Ketamine Hcl 50 Mg/Ml Administered 07/04/19 10:42 Dose 10 mg .ROUTE .STK-MED ONE Polyethylene Glycol/Electrolytes 4,000 ml 07/03/19 11:00 07/03/19 11:35 Golytely Solution 4000 Ml PO 07/03/19 11:01 4,000 ml 1100 ONE Administration Propofol Confirm 07/04/19 10:41 Diprivan 200 Mg/20 Ml Administered 07/04/19 10:42 Dose 200 mg IV .STK-MED ONE Propofol Confirm 07/04/19 11:32 Diprivan 200 Mg/20 Ml Administered 07/04/19 11:33 Dose 200 mg IV .STK-MED ONE Intake & Output (Last 24 hours) 07/02/19 07/03/19 07/04/19 07/05/19 11:59 11:59 11:59 11:59 Intake Total 2682 5283 Output Total 1600 Balance 1082 5283 Weight 92 kg 90.6 kg Orders (Last 24 hours) Category Date Time Status NPO Diet 07/04/19 00:01 Completed Regular Diet Diet 07/04/19 Lunch Active Clonazepam [Klonopin] Med 07/03/19 22:00 Active 2 mg PO HS Glycopyrrolate [Robinul] Med 07/04/19 11:33 Discontinued 0.2 mg .ROUTE .STK-MED ONE Ketamine HCl 50 mg/ml [Ketamine HCl 50 MG/ML] Med 07/04/19 10:41 Discontinued 10 mg .ROUTE .STK-MED ONE Propofol 200 mg/20 ml [Diprivan 200 mg/20 ml] Med 07/04/19 10:41 Discontinued 200 mg IV .STK-MED ONE Propofol 200 mg/20 ml [Diprivan 200 mg/20 ml] Med 07/04/19 11:32 Discontinued 200 mg IV .STK-MED ONE Ringers Solution,Lactated [Lactated Ringers] 1,000 ml Med 07/04/19 10:30 Active IV 50 mls/hr Sulfasalazine 500 mg [Azulfidine 500 mg] Med 07/04/19 12:40 Stat 500 mg PO BID STA Patient Care Notes (Last 24 hours) 07/04/19 10:23 Case Management Note by Yomaira Enciso INDEPENDENT WITH ALL ADL'S. DENIES NEEDS FOR DISCHARGE. WILL FOLLOW. Initialized on 07/04/19 10:23 - END OF NOTE 07/03/19 14:14 Nursing Note by Darcie Johns I faxed ct scan of abd/pelvis to group per ATTN:Karlee. Initialized on 07/03/19 14:14 - END OF NOTE - Vitals & Intake/Output Vital Signs: Vital Signs Temperature 98.2 F 07/04/19 12:00 Pulse Rate 83 07/04/19 12:00 Respiratory Rate 18 07/04/19 12:00 Blood Pressure 137/73 07/04/19 12:00 O2 Sat by Pulse Oximetry 95 07/04/19 12:00 Intake & Output: Intake & Output 07/02/19 07/03/19 07/04/19 07/05/19 11:59 11:59 11:59 11:59 Intake Total 2682 5283 Output Total 1600 Balance 1082 5283 Weight 92 kg 90.6 kg - Lab Result Diagrams: 07/03/19 04:30 07/03/19 04:30 - Radiology Exams Ordered Rad Exams-Entire Visit: Radiology Procedures Category Date Time Status ABDOMEN AND PELVIS W/0 CONTRAS [CT] Stat Exams 07/02/19 17:35 Completed - Procedures and Test Procedures and Tests throughout Hospitalization: Therapy Orders & Screens 07/02/19 23:16 Respiratory Therapy Assessment DAILY Comment: Diagnosis: Transverse Colitis, Hematochezia, LLQ Abdominal Pain 07/02/19 23:28 RT Screen per Nursing Assess ONCE Comment: Protocol Order Physician Instructions: Greater than 3 points order RT Admission Screen Reason For Exam: Triggered on Admission Diagnosis: Transverse Colitis, Hematochezia, LLQ Abdominal Pain Diagnosis: Transverse Colitis, Hematochezia, LLQ Abdominal Pain Pneumonia: No Home O2: No Asthma: Yes CHF: No Home CPAP/BIPAP: No Home Nebs/MDI: Yes: not used at home in over a wee Total Points: 9 Discharge Exam General Appearance: no apparent distress, alert Neurologic Exam: alert, oriented x 3, cooperative, normal mood/affect, nml cerebellar function, sensation nml, No motor deficits Eye Exam: PERRL, EOMI, eyes nml inspection Ears, Nose, Throat Exam: normal ENT inspection, pharynx normal, moist mucous membranes Neck Exam: normal inspection, non-tender, supple, full range of motion Respiratory Exam: normal breath sounds, lungs clear, No respiratory distress Cardiovascular Exam: regular rate/rhythm, normal heart sounds Gastrointestinal/Abdomen Exam: soft, No tenderness, No mass Pelvic Exam: deferred Rectal Exam: deferred Back Exam: normal inspection, normal range of motion, No CVA tenderness, No vertebral tenderness Extremity Exam: normal inspection, normal range of motion Skin Exam: normal color, warm, dry Final Diagnosis/Problem List - Final Discharge Diagnosis/Problem (1) Ulcerative (chronic) enterocolitis Current Visit: Yes Status: Acute Priority: High Assessment & Plan: will d/c home with flagyl 500 mg po tid for 5 days, sulfasalazine 500 mg po bid for 6 weeks Code(s): K51.00 - ULCERATIVE (CHRONIC) PANCOLITIS WITHOUT COMPLICATIONS (2) Colitis Current Visit: Yes Status: Resolved Code(s): K52.9 - NONINFECTIVE GASTROENTERITIS AND COLITIS, UNSPECIFIED (3) Hematochezia Current Visit: Yes Status: Resolved Code(s): K92.1 - MELENA (4) Left lower quadrant abdominal pain Current Visit: Yes Status: Resolved Code(s): R10.32 - LEFT LOWER QUADRANT PAIN - Discharge Discharge Date: 07/04/19 Disposition: Home, Self-Care Condition: Stable Prescriptions: New Metronidazole 500 mg [Flagyl 500 MG] 500 mg PO TID #15 tablet Sulfasalazine 500 mg [Azulfidine 500 mg] 500 mg PO QID #120 tablet Continue clonazePAM [Clonazepam] 2 mg PO HS Fluticasone Propionate [Flonase NASAL] 2 spray IH DAILY PRN PRN PRN Reason: Allergies Albuterol Common Canister [Proventil Common Canister] 1 mcg IH DAILY PRN PRN PRN Reason: asthma Follow up with: CIRO MORALES MD [Primary Care Provider] - 1 Week
[2019-07-04 14:44] LABS: 027 TOX PROD PRESUMPTIVE NEGATIVE (NEGATIVE); TOXIGENIC C. DIFF ORG NEGATIVE (NEGATIVE)
[2019-07-04 16:45] VITALS: BP 107/64; PULSE 92; O2SAT 94
--- NOTE | 2019-07-05 14:57 | OP ---
SURGERY DATE/TIME: 07/04/2019 1125 PREOPERATIVE DIAGNOSIS: Diarrhea. POSTOPERATIVE DIAGNOSIS: Segmental colitis possibly ischemic in the mid transverse colon. PROCEDURE: Colonoscopy complete to cecum. Stool for Clostridium difficile, ova and parasite, stool pathogens. SURGEON: Azeem Del Angel M.D. ANESTHESIA: MAC. FINDINGS: Segmental colitis of the transverse colon. INDICATION: The patient had CT suggesting this diagnosis. She has had diarrhea. DESCRIPTION OF PROCEDURE: She is taken to the endoscopy. Stool trap was submitted. Anal digital examination satisfactory. Scope introduced. After the stool filled up on the trap it was submitted. The scope was passed over the cecum. On withdrawal the ascending, hepatic were satisfactory. Mid transverse there was an 8 inch area segmental colitis consistent with ischemic colitis or pseudomembranous colitis. Splenic, descending, sigmoid, rectum, anus satisfactory. IMPRESSION: Colitis. PLAN: Medical treatment. There were no samples taken but stool samples were taken. If this is not Clostridium difficile I would assume this is ischemic. It looks like it is trying to get better on its own at this point.
[2019-07-06 12:30] LABS: Source: Feces
[2019-07-06 12:50] LABS: Giardia Antigen EIA Negative (Negative)
== END 2019-07-04 17:37 | disposition home or self-care (01) ==
LOC: ED 17:10 → MED SURG 22:18
PROVIDERS: ADMIT General Practice; ATTEND General Practice
DX: K51.00 Ulcerative (chronic) pancolitis without complications (principal); K92.1 Melena; R10.32 Left lower quadrant pain; Z79.899 Other long term (current) drug therapy
CPT/HCPCS: 36000; 36415; 45378; 74176; 80048; 80053; 82150; 83605; 83690; 85025; 87177; 87209; 87493; 94760; 96360; 99285; G0378; J2704; A9270-GY